=== PATIENT | female | born 1955 | race Caucasian/White ===

== ENCOUNTER 2018-12-26 07:55 | Emergency (ER) | payer OTHER, MEDICAID ==
[~2018-12-26] VITALS: Ht 162.6 cm; Wt 90.7 kg
[2018-12-26 08:01] VITALS: BP 187/102
[2018-12-26] MEDS ORDERED: ZANAFLEX4 MG PO (08:08)
[2018-12-26] MEDS ORDERED: NORCO 10-325 T1 EACH PO (08:08)
[2018-12-26] MEDS ORDERED: XANAX 0.5 MG0.5 MG PO (08:08)
[2018-12-26] MEDS ORDERED: DILTIAZEM 24HR360 M1 PO (08:09)
[2018-12-26] MEDS ORDERED: HYDROCHLOROTHIA25 M2 PO (08:09)
[2018-12-26] MEDS ORDERED: ZOLOFT50 MG PO (08:09)
[2018-12-26] MEDS ORDERED: COZAAR 25 MG TA25 M2 PO (08:09)
[2018-12-26] MEDS ORDERED: ATORVASTATIN CA40 MG PO (08:10)
[2018-12-26] MEDS ORDERED: PREDNISONE50 MG PO (08:18)
== END 2018-12-26 08:30 | disposition home or self-care (01) ==
LOC: M.ERS 07:55
DX: M54.32 Sciatica, left side (principal); I10 Essential (primary) hypertension; E78.5 Hyperlipidemia, unspecified; Z88.5 Allergy status to narcotic agent; Z88.6 Allergy status to analgesic agent

== ENCOUNTER 2019-01-24 11:53 | Emergency (ER) | payer OTHER, MEDICAID ==
[~2019-01-24] VITALS: Ht 162.6 cm; Wt 90.7 kg
[~2019-01-24 11:53] MED LIST: ATORVASTATIN CA40 MG PO; COZAAR 25 MG TA25 M2 PO; DILTIAZEM 24HR360 M1 PO; HYDROCHLOROTHIA25 M2 PO; NORCO 10-325 T1 EACH PO; PREDNISONE50 MG PO; XANAX 0.5 MG0.5 MG PO; ZANAFLEX4 MG PO; ZOLOFT50 MG PO
[2019-01-24] MEDS ORDERED: NABUMETONE 750750 M1 PO (12:15)
[2019-01-24] MEDS ORDERED: PREDNISONE50 MG PO (12:24)
[2019-01-24 13:18] VITALS: BP 154/91
== END 2019-01-24 13:18 | disposition home or self-care (01) ==
LOC: M.ERS 11:53
DX: M54.31 Sciatica, right side (principal); F17.200 Nicotine dependence, unspecified, uncomplicated; I10 Essential (primary) hypertension; E78.5 Hyperlipidemia, unspecified; Z98.890 Other specified postprocedural states; Z86.73 Personal history of transient ischemic attack (TIA), and cerebral infarction without residual deficits; Z88.6 Allergy status to analgesic agent; Z88.5 Allergy status to narcotic agent

== ENCOUNTER 2019-03-25 09:24 | Emergency (ER) | payer OTHER, MEDICAID ==
[~2019-03-25] VITALS: Ht 160 cm; Wt 90.7 kg
[~2019-03-25 09:24] MED LIST changes: +NABUMETONE 750750 M1 PO
[2019-03-25 10:23] VITALS: BP 170/70
== END 2019-03-25 10:23 | disposition home or self-care (01) ==
LOC: M.ERS 09:24
DX: M54.5 Low back pain (principal); I10 Essential (primary) hypertension; E78.5 Hyperlipidemia, unspecified; H54.40 Blindness, one eye, unspecified eye; F17.200 Nicotine dependence, unspecified, uncomplicated; Z98.890 Other specified postprocedural states; Z86.73 Personal history of transient ischemic attack (TIA), and cerebral infarction without residual deficits; Z88.5 Allergy status to narcotic agent; Z88.6 Allergy status to analgesic agent